=== PATIENT | female | born 1995 | race African-American/Black ===

== ENCOUNTER 2016-08-19 10:48 | Observation (INO) | payer OTHER ==
[~2016-08-19] VITALS: Ht 167.6 cm; Wt 81.6 kg
[2016-08-19 12:24] LABS: CLARITY URINE CLEAR (CLEAR); COLOR URINE YELLOW (YELLOW); GLUCOSE URINE NEGATIVE (NEGATIVE); KETONES URINE NEGATIVE (NEGATIVE); LEUKOCYTE ESTERASE URINE 1+ (NEGATIVE); NITRITE URINE NEGATIVE (NEGATIVE); OCCULT BLOOD URINE NEGATIVE (NEGATIVE); PH URINE 6.5 (4.5-8.0); PROTEIN URINE NEGATIVE (NEGATIVE); SPECIFIC GRAVITY URINE 1.005 (1.005-1.030); UROBILINOGEN URINE 0.2 E.U./dL (0.2-1.0)
[2016-08-19] MEDS ORDERED: LACTATED RINGERS 1,000 ML IV SCH (12:45)
[2016-08-19] MEDS ORDERED: CLINDAMYCIN 900 MG in DEXTROSE 5% WATER 50 ML IV SCH (12:45)
[2016-08-19] MEDS ORDERED: PREN-88 PO (13:29)
== END 2016-08-19 14:15 | disposition home or self-care (01) ==
LOC: L&D 10:48
PROVIDERS: ADMIT Obstetrics & Gynecology; ATTEND Obstetrics & Gynecology
DX: Z34.90 Encounter for supervision of normal pregnancy, unspecified, unspecified trimester (principal)
CPT/HCPCS: 81001; 96360; 96365; 99281; G0378; J3490; J7120; J7060

== ENCOUNTER 2016-09-28 17:38 | Observation (INO) | payer OTHER ==
[~2016-09-28] VITALS: Ht 66 cm; Wt 90.3 kg
[~2016-09-28 17:38] MED LIST: PREN-88 PO
[2016-09-28] MEDS ORDERED: FERR-63 PO (18:13)
[2016-09-28] MEDS: LACTATED RINGERS 1,000 ML IV SCH ×2 (18:54→23:12)
== END 2016-09-29 01:30 | disposition home or self-care (01) ==
LOC: L&D 17:38
PROVIDERS: ADMIT Specialist; ATTEND Specialist
DX: O26.893 Other specified pregnancy related conditions, third trimester (principal); R10.9 Unspecified abdominal pain; R10.2 Pelvic and perineal pain; Z3A.40 40 weeks gestation of pregnancy
CPT/HCPCS: 76805; 76818; 96360; 96361; G0378; J7120

== ENCOUNTER 2016-09-30 13:38 | Inpatient (IN) | payer OTHER ==
[~2016-09-30] VITALS: Ht 167.6 cm; Wt 81.6 kg
[~2016-09-30 13:38] MED LIST changes: +FERR-63 PO
[2016-09-30] MEDS ORDERED: DEXT 5%/LR + PITOCIN 20UNITS/L 1,000 ML IV SCH (21:40)
[2016-09-30] MEDS ORDERED: NALOXONE HCL 0.4 MG/ML 1ML VIAL IM PRN (21:45)
[2016-09-30] MEDS ORDERED: METHYLERGONOVINE MALEATE 0.2 MG/ML IM PRN (21:45)
[2016-09-30] MEDS ORDERED: PENICILLIN G POTASSIUM 5 MMU in DEXT 5% WATER 100 ML IV SCH (21:45)
[2016-09-30] MEDS ORDERED: BUTORPHANOL TARTRATE 2 MG/ML VIAL IV PRN (21:45)
[2016-09-30] MEDS ORDERED: PENICILLIN G POTASSIUM 2.5 MMU in DEXTROSE 5% WATER 50 ML IV SCH (21:45)
[2016-09-30] MEDS ORDERED: LIDOCAINE HCL 1% 20ML VIAL (Pyxis) INJ INFIL SCH (21:45)
[2016-09-30] MEDS ORDERED: CARBOPROST TROMETHAMINE 250 MCG/ML AMPUL IM PRN (21:45)
[2016-09-30] MEDS: LACTATED RINGERS 1,000 ML IV SCH ×2 (22:08→22:41)
[2016-09-30] MEDS ORDERED: CLINDAMYCIN 900 MG in DEXTROSE 5% WATER 50 ML IV SCH (22:30)
[2016-09-30 23:27] LABS: BASOPHILS % 0.3 % (0.0-2.0); EOSINOPHILS % 1.1 % (0.0-5.0); LYMPHOCYTES % 18.9 % (20.0-50.0); MEAN CORPUSCULAR HEMOGLOBIN 22.2 pg (28.0-32.0); MEAN CORPUSCULAR VOLUME 69.2 fL (81.0-99.0); MEAN PLATELET VOLUME 11.6 fl (7.4-10.4); NEUTROPHILS % 70.7 % (40.0-76.0); PLATELET 193 x1000/uL (130-400); RED BLOOD CELL COUNT 4.05 mill/uL (4.2-5.4); RED CELL DISTRIBUTION WIDTH 16.6 % (11.6-14.6)
[2016-09-30 23:33] LABS: INR 0.9; PROTHROMBIN TIME 9.8 sec
[2016-09-30 23:43] LABS: CARBON DIOXIDE 23 mEq/L (21-32); CHLORIDE 107 mEq/L (98-107)
[2016-10-01 00:04] LABS: PLATELET ESTIMATE NORMAL
[2016-10-01] MEDS ORDERED: BUPIVACAINE HCL/NS/PF EPIDURAL 100 ML EP ONE (00:58)
[2016-10-01] MEDS ORDERED: BUPIVACAINE HCL/PF 0.25% (2.5MG/ML) 10ML ONE (00:58)
[2016-10-01] MEDS ORDERED: FENTANYL CITRATE/PF 50MCG/ML 2ML VIAL ONE (00:58)
[2016-10-01] MEDS ORDERED: BUPIVACAINE HCL/NS/PF EPIDURAL 100 ML EP SCH (01:00)
[2016-10-01] MEDS: LACTATED RINGERS 1,000 ML IV SCH (01:14)
[2016-10-01 05:04] LABS: CLARITY URINE CLEAR (CLEAR); COLOR URINE YELLOW (YELLOW); GLUCOSE URINE NEGATIVE (NEGATIVE); KETONES URINE NEGATIVE (NEGATIVE); LEUKOCYTE ESTERASE URINE NEGATIVE (NEGATIVE); NITRITE URINE NEGATIVE (NEGATIVE); OCCULT BLOOD URINE NEGATIVE (NEGATIVE); PH URINE 7.5 (4.5-8.0); PROTEIN URINE NEGATIVE (NEGATIVE); SPECIFIC GRAVITY URINE 1.009 (1.005-1.030)
[2016-10-01 05:30] LABS: *AMPHETAMINES SCREEN URINE NEGATIVE (NEGATIVE); *BARBITURATES SCREEN URINE NEGATIVE (NEGATIVE); *BENZODIAZEPINES SCREEN URINE NEGATIVE (NEGATIVE); CANNABINOID URINE SCREEN NEGATIVE (NEGATIVE); METHADONE URINE SCREEN NEGATIVE (NEGATIVE); OPIATES URINE SCREEN NEGATIVE (NEGATIVE); PHENCYCLIDINE URINE SCREEN NEGATIVE (NEGATIVE)
[2016-10-01 05:44] LABS: *COCAINE SCREEN URINE PRESUMTIVE POSITIVE (NEGATIVE)
[2016-10-01] MEDS ORDERED: DIPHENHYDRAMINE 25MG CAPSULE PO PRN (06:45)
[2016-10-01] MEDS ORDERED: ACETAMINOPHEN WITH CODEINE 300/30MG TABLET PO PRN (06:45)
[2016-10-01] MEDS ORDERED: GLYCERIN/WITCH HAZEL LEAF MEDICATED PAD TOP PRN (06:45)
[2016-10-01] MEDS ORDERED: RHO(D) IMMUNE GLOBULIN 300 MCG/SYR IM PRN (06:45)
[2016-10-01] MEDS ORDERED: HEMORRHOIDAL SUPP PR PRN (06:45)
[2016-10-01] MEDS ORDERED: BENZOCAINE/LANOLIN/ALOE VERA SPRAY TOP PRN (06:45)
[2016-10-01] MEDS ORDERED: BISACODYL 10MG SUPP PR PRN (06:45)
[2016-10-01] MEDS ORDERED: LANOLIN OINT 0.25 GM TUBE TOP PRN (06:45)
[2016-10-01 06:46] LABS: HEPATITIS B SURFACE ANTIGEN NEGATIVE
[2016-10-01] MEDS ORDERED: DEXT 5%/LR + PITOCIN 20UNITS/L 1,000 ML IV SCH (07:10)
[2016-10-01 10:30] VITALS: BP 98/65
[2016-10-01 11:30] VITALS: BP 102/77
[2016-10-01 17:38] VITALS: BP 115/70
[2016-10-01] MEDS: ACETAMINOPHEN WITH CODEINE 300/30MG TABLET PO PRN (19:46)
[2016-10-01 20:00] VITALS: BP 120/78
[2016-10-01] MEDS: SIMETHICONE 80MG TABLET CHEW PO SCH (20:03)
[2016-10-01] MEDS: MAGNESIUM/ALUMINUM HYDROXIDE/SIMETHICONE 30ML UDC PO SCH (20:05)
[2016-10-01] MEDS ORDERED: DOCUSATE SODIUM 100MG CAPSULE PO SCH (21:00)
[2016-10-01 23:45] VITALS: BP 94/46
[2016-10-02 06:26] VITALS: BP 109/74
[2016-10-02] MEDS: ACETAMINOPHEN WITH CODEINE 300/30MG TABLET PO PRN (06:28)
[2016-10-02 07:05] LABS: BASOPHILS % 0.5 % (0.0-2.0); EOSINOPHILS % 2.3 % (0.0-5.0); HEMATOCRIT. 26.6 % (36.0-48.0); HEMOGLOBIN. 8.5 g/dL (12.0-16.0); LYMPHOCYTES % 28.8 % (20.0-50.0); MEAN CORPUSCULAR HEMOGLOBIN 22.4 pg (28.0-32.0); MEAN CORPUSCULAR VOLUME 70.1 fL (81.0-99.0); MEAN PLATELET VOLUME 11.4 fl (7.4-10.4); MONOCYTES % 8.8 % (2.0-8.0); NEUTROPHILS % 59.6 % (40.0-76.0); PLATELET 171 x1000/uL (130-400); RED BLOOD CELL COUNT 3.79 mill/uL (4.2-5.4); RED CELL DISTRIBUTION WIDTH 16.9 % (11.6-14.6)
[2016-10-02 07:34] VITALS: BP 91/50
[2016-10-02] MEDS: MAGNESIUM/ALUMINUM HYDROXIDE/SIMETHICONE 30ML UDC PO SCH ×3 (08:32→17:33)
[2016-10-02] MEDS: SIMETHICONE 80MG TABLET CHEW PO SCH ×3 (08:39→17:30)
[2016-10-02] MEDS: PRENATAL VIT/FE FUMARATE/FA TABLET PO SCH (08:40)
[2016-10-02] MEDS: FERROUS SULFATE 325MG TABLET PO SCH ×2 (12:38→17:59)
[2016-10-02] MEDS: IBUPROFEN 400MG TABLET PO PRN ×2 (15:13→23:19)
[2016-10-02 15:57] VITALS: BP 118/51
[2016-10-02 20:00] VITALS: BP 101/63
[2016-10-03 04:46] VITALS: BP 98/65
[2016-10-03 07:31] VITALS: BP 115/58
[2016-10-03] MEDS: PRENATAL VIT/FE FUMARATE/FA TABLET PO SCH (07:32)
[2016-10-03] MEDS: FERROUS SULFATE 325MG TABLET PO SCH (07:32)
[2016-10-03] MEDS: IBUPROFEN 400MG TABLET PO PRN (07:32)
[2016-10-03] MEDS: SIMETHICONE 80MG TABLET CHEW PO SCH (07:33)
[2016-10-03] MEDS: MAGNESIUM/ALUMINUM HYDROXIDE/SIMETHICONE 30ML UDC PO SCH (07:35)
[2016-10-06 06:09] LABS: COCAINE CONFIRMATION URINE Positive (.)
== END 2016-10-03 12:40 | disposition home or self-care (01) | DRG 560 ==
LOC: OBSVTOIN 13:38 → L&D 13:38 → 7EST PP/OB 10-01 10:10
PROVIDERS: ADMIT Obstetrics & Gynecology; ATTEND Obstetrics & Gynecology
PROC: 10E0XZZ Delivery of Products of Conception, External Approach (ICD-10-PCS; principal; 2016-09-30)
PROC: 3E0S3CZ (ICD-10-PCS; 2016-09-30)
PROC: 00HU33Z Insertion of Infusion Device into Spinal Canal, Percutaneous Approach (ICD-10-PCS; 2016-09-30)
DX: O99.02 Anemia complicating childbirth (principal); D62 Acute posthemorrhagic anemia; Z88.0 Allergy status to penicillin; Z3A.39 39 weeks gestation of pregnancy
CPT/HCPCS: 36415; 80053; 80305; 80353; 81003; 85025; 85610; 85730; 86592; 86703; 86762; 86850; 86900; 87340; 96360; 96361; 99281; G0378; J0595; J2590; J3010; J3490; J7060; J7120

== ENCOUNTER 2017-05-03 22:56 | Emergency (ER) | payer OTHER ==
[~2017-05-03] VITALS: Ht 167.6 cm; Wt 82.0 kg
[2017-05-03 23:19] VITALS: BP 125/68
== END 2017-05-04 08:08 | disposition left against medical advice (07) ==
LOC: ER 22:56
DX: Z53.21 Procedure and treatment not carried out due to patient leaving prior to being seen by health care provider (principal)

== ENCOUNTER 2018-06-10 05:22 | Emergency (ER) | payer OTHER ==
[~2018-06-10] VITALS: Ht 167.6 cm; Wt 73.0 kg
[2018-06-10] MEDS ORDERED: SODIUM CHLORIDE 0.9% 1,000 ML IV ONE (06:07)
[2018-06-10] MEDS ORDERED: KETOROLAC 30MG/ML VIAL IV STA (06:07)
[2018-06-10 06:24] LABS: BASOPHILS % 0.8 % (0.0-2.0); EOSINOPHILS % 4.4 % (0.0-5.0); HEMOGLOBIN. 9.1 g/dL (12.0-16.0); LYMPHOCYTES % 15.2 % (20.0-50.0); MEAN CORPUSCULAR HEMOGLOBIN 21.8 pg (28.0-32.0); MEAN CORPUSCULAR VOLUME 69.5 fL (81.0-99.0); MEAN PLATELET VOLUME 8.6 fl (7.4-10.4); MONOCYTES % 10.3 % (2.0-8.0); NEUTROPHILS % 69.3 % (40.0-76.0); PLATELET 439 x1000/uL (130-400); RED BLOOD CELL COUNT 4.17 mill/uL (4.2-5.4); RED CELL DISTRIBUTION WIDTH 19.9 % (11.6-14.6)
[2018-06-10 06:31] LABS: CHLORIDE 107 mEq/L (98-107)
[2018-06-10 06:46] LABS: CLARITY URINE CLEAR (CLEAR); COLOR URINE YELLOW (YELLOW); KETONES URINE NEGATIVE (NEGATIVE); LEUKOCYTE ESTERASE URINE 2+ (NEGATIVE); NITRITE URINE NEGATIVE (NEGATIVE); OCCULT BLOOD URINE NEGATIVE (NEGATIVE); PH URINE 6.5 (4.5-8.0); PROTEIN URINE NEGATIVE (NEGATIVE); SPECIFIC GRAVITY URINE 1.016 (1.005-1.030)
[2018-06-10 07:39] LABS: PLATELET ESTIMATE NORMAL
[2018-06-10 08:45] VITALS: BP 102/51
== END 2018-06-10 09:00 | disposition home or self-care (01) ==
LOC: ER 05:22
DX: N39.0 Urinary tract infection, site not specified (principal); D50.9 Iron deficiency anemia, unspecified; E88.09 Other disorders of plasma-protein metabolism, not elsewhere classified; D47.3 Essential (hemorrhagic) thrombocythemia; R03.0 Elevated blood-pressure reading, without diagnosis of hypertension
CPT/HCPCS: 36415; 76705; 80053; 81003; 81025; 85025; 87086; 96374; 99284; J1885; J7030

== ENCOUNTER 2022-04-08 12:18 | Emergency (ER) | payer OTHER ==
[~2022-04-08] VITALS: Ht 167.6 cm; Wt 82.0 kg
[2022-04-08 12:32] VITALS: BP 124/62
== END 2022-04-08 16:59 | disposition home or self-care (01) ==
LOC: ER 12:18
DX: N93.9 Abnormal uterine and vaginal bleeding, unspecified (principal); Z88.0 Allergy status to penicillin
CPT/HCPCS: 99281

== ENCOUNTER 2023-05-19 01:18 | Emergency (ER) | payer MEDICAID ==
[~2023-05-19] VITALS: Ht 167.6 cm; Wt 75.0 kg
[2023-05-19 01:23] VITALS: TEMP 98.3; O2SAT 100
[2023-05-19 02:29] LABS: HEMATOCRIT. 33.7 % (36.0-48.0); HEMOGLOBIN. 10.6 g/dL (12.0-16.0); MEAN CORPUSCULAR HEMOGLOBIN 26.7 pg (28.0-32.0); MEAN CORPUSCULAR HGB CONC 31.5 g/dL (31.0-37.0); MEAN CORPUSCULAR VOLUME 84.5 fL (81.0-99.0); PLATELET 310 x1000/uL (130-400); RED BLOOD CELL COUNT 3.98 mill/uL (4.2-5.4); WHITE BLOOD COUNT 11.7 x1000/uL (4.5-11.0)
[2023-05-19 02:39] LABS: DIFFERENTIAL COMMENT 1
[2023-05-19 02:48] LABS: ALANINE AMINOTRANSFERASE 26 IU/L (10-49); ALBUMIN 4.1 g/dL (3.2-4.8); ASPARTATE AMINOTRANSFERASE 32 IU/L (<34); BILIRUBIN TOTAL 0.3 mg/dL (0.1-1.0); CALCIUM 8.1 mg/dL (8.7-10.4); CARBON DIOXIDE 24 mEq/L (21-32); CHLORIDE 109 mEq/L (98-107); CREATININE 0.6 mg/dL (0.6-1.0); ETHANOL BLOOD 177 mg/dL (<10); GLUCOSE 95 mg/dL (70-105); POTASSIUM 3.4 mEq/L (3.5-5.1); PROTEIN TOTAL 6.3 g/dL (6.0-8.3); SODIUM 141 mEq/L (136-145); UREA NITROGEN BLOOD 7 mg/dL (9-23)
[2023-05-19 02:52] LABS: HCG SCREEN NEGATIVE
[2023-05-19 05:08] VITALS: BP 110/78; PULSE 74; RESP 18
[2023-05-19 08:06] LABS: PLATELET ESTIMATE NORMAL
== END 2023-05-19 05:54 | disposition home or self-care (01) ==
LOC: ER 01:18
DX: S09.90XA Unspecified injury of head, initial encounter (principal); Z76.0 Encounter for issue of repeat prescription; Z88.0 Allergy status to penicillin; Z00.00 Encounter for general adult medical examination without abnormal findings; Y04.0XXA Assault by unarmed brawl or fight, initial encounter; Y93.89 Activity, other specified; Y92.89 Other specified places as the place of occurrence of the external cause; Y99.8 Other external cause status
CPT/HCPCS: 36415; 80053; 80320; 84703; 85025; 99284; G0480